=== PATIENT | female | born 1970 | race African-American/Black ===

== ENCOUNTER 2017-05-21 07:15 | Inpatient (IN) | payer OTHER ==
[~2017-05-21] VITALS: Ht 175.3 cm; Wt 104.3 kg
[~2017-05-21 07:15] MED LIST: CALCIUM 500 MG1 EACH PO; FERROUS SULFAT325 MG PO; K-DUR20 MEQ PO; MEDROXYPRO150 MG/1 M IM; METHIMAZOLE10 MG PO; MOTRIN800 MG PO; MULTIVITAMIN1 EAC2 PO; NORCO 5/3251 TABLET PO; VALTREX50 MG/ML PO
[2017-05-21 08:07] VITALS: BP 124/75
[2017-05-21 20:10] VITALS: BP 166/83
[2017-05-21 20:53] LABS: HEMATOCRIT 34.8 % (36.0-46.0); MCV 77.7 FL (83-99)
[2017-05-22 00:23] VITALS: BP 137/81
[2017-05-22 04:25] VITALS: BP 141/67
[2017-05-22 06:46] LABS: EOSINOPHIL (%) 0 % (0-5); HEMATOCRIT 30.6 % (36.0-46.0); IMMATURE GRANULOCYTE (%) 0.4 % (0.0-0.7); LYMPHOCYTE COUNT 0.7 K/uL (1.0-2.8); MCH 26.3 PG (29.0-34.0); MCHC 34.3 G/DL (30.0-36.0); MCV 76.7 FL (83-99); MEAN PLAT.VOLUME 9.7 uM^3 (9.5-12.4); MONOCYTE (%) 8.9 % (3-12); MONOCYTE COUNT 0.9 K/uL (0-0.8); NEUTROPHIL (%) 83.6 % (45-76); PLATELET COUNT 220 K/uL (156-360); RBC DIS.WIDTH-SD 41.7 % (39-53); RED BLOOD COUNT 3.99 M/uL (3.80-5.20); WHITE BLOOD COUNT 9.6 K/uL (4.1-10.2)
[2017-05-22 07:11] LABS: ANION GAP 7 MEQ/L (2-14); CHLORIDE 109 MEQ/L (99-109); GFR ESTIMATE (CALCULATED) > 59 mL/min/; GLUCOSE 130 mg/dL (70-99); POTASSIUM 3.8 MEQ/L (3.7-5.4); SAMPLE HEMOLYSIS CHECK 0; SAMPLE ICTERIC CHECK 0; SAMPLE LIPEMIA CHECK 0; SODIUM 142 MEQ/L (136-147); UREA NITROGEN (BUN) 8 mg/dL (9-23)
[2017-05-22 07:15] VITALS: BP 143/67
[2017-05-22 11:55] VITALS: BP 132/60
[2017-05-22 15:40] VITALS: BP 133/62
[2017-05-22 19:25] VITALS: BP 125/58
[2017-05-23] VITALS (12 sets, daily range): BP systolic 125–154; BP diastolic 59–72
[2017-05-23 10:23] LABS: HEMATOCRIT 26.1 % (36.0-46.0); MCH 27.7 PG (29.0-34.0); MCHC 35.2 G/DL (30.0-36.0); MCV 78.6 FL (83-99); MEAN PLAT.VOLUME 9.8 uM^3 (9.5-12.4); PLATELET COUNT 196 K/uL (156-360); RBC DIS.WIDTH-CV 15.6 % (11.8-14.6); RBC DIS.WIDTH-SD 44.7 % (39-53); RED BLOOD COUNT 3.32 M/uL (3.80-5.20); WHITE BLOOD COUNT 9.4 K/uL (4.1-10.2)
[2017-05-23] MEDS ORDERED: MACROBID100 MG PO (12:53)
[2017-05-23] MEDS ORDERED: ENDOCET 5-3251 EACH PO (12:53)
[2017-05-23] MEDS ORDERED: IBUPROFEN800 MG PO (12:53)
[2017-05-23] MEDS ORDERED: COLACE100 MG PO (12:53)
[2017-05-24 03:41] VITALS: BP 130/74
[2017-05-24 08:20] VITALS: BP 137/61
== END 2017-05-24 10:36 | disposition home or self-care (01) | DRG 742 ==
LOC: SDC 07:15 → ENRESERV 10:57 → SDC 13:01 → 2SOUTH 16:24 → 2EASTP 16:24
PROVIDERS: Obstetrics & Gynecology
DX: D25.1 Intramural leiomyoma of uterus (principal); D62 Acute posthemorrhagic anemia; E66.9 Obesity, unspecified; N92.0 Excessive and frequent menstruation with regular cycle; K66.0 Peritoneal adhesions (postprocedural) (postinfection); N94.6 Dysmenorrhea, unspecified; Z53.31 Laparoscopic surgical procedure converted to open procedure; D50.0 Iron deficiency anemia secondary to blood loss (chronic); A60.00 Herpesviral infection of urogenital system, unspecified; N80.0 Endometriosis of uterus; Z68.33 Body mass index [BMI] 33.0-33.9, adult
CPT/HCPCS: 80048; 84132; 85014; 85018; 85025; 85027; 86850; 86900; 86901; 86920; 87086; 88307; 93005; J0131; J0690; J1100; J1170; J2175; J2250; J2270; J2405; J2710; J3010; J7120; P9016; S0020